=== PATIENT | female | born 1985 | race Caucasian/White ===

== ENCOUNTER 2019-01-07 17:32 | Emergency (ER) | payer MEDICAID ==
[2019-01-07] MEDS: KETOROLAC 15 MG INJ IV (19:11)
[2019-01-07] MEDS: CEFTRIAXONE 1 GM/50 ML (PMX) 50 ML IVPB (19:11)
[2019-01-07] MEDS: DEXAMETHASONE 10 MG/ML 1 ML INJ IV (19:11)
[2019-01-07] MEDS: SOD CHLORIDE 0.9% 1,000 ML IV (19:11)
[2019-01-07 19:13] LABS: ABNORMAL IP MESSAGE 1; HEMOGLOBIN 13.5 g/dl (12.0-16.0); MEAN CORPUSCULAR HEMOGLOBIN 29.9 pg (29.0-33.0); MEAN CORPUSCULAR HGB CONC 32.9 g/dl (32.0-37.0); MEAN CORPUSCULAR VOLUME 90.7 fl (82.0-101.0); MEAN PLATELET VOLUME 10.2 fl (7.4-10.4); PLATELET COUNT 280 10^3/UL (140-415); RED BLOOD COUNT 4.52 10^6/ul (4.20-5.40); RED CELL DISTRIBUTION WIDTH 12.4 % (11.5-14.5)
[2019-01-07 19:13] LABS: WHITE BLOOD COUNT 29.3 10^3/ul (4.8-10.8)
[2019-01-07 19:15] LABS: POSITIVE DIFF @See below
[2019-01-07 19:16] LABS: ADD MAN DIFF? YES
[2019-01-07 19:32] LABS: ANION GAP 16 (5-13); BLOOD UREA NITROGEN 10 mg/dl (7-20); CALCIUM 9.7 mg/dl (8.4-10.2); CARBON DIOXIDE 20 mmol/L (21-31); CHLORIDE 104 mmol/L (97-110); CREATININE 0.69 mg/dl (0.44-1.00); Estimated GFR > 60 mL/min (>60); GLUCOSE 103 mg/dl (70-220); POTASSIUM 4.3 mmol/L (3.5-5.1); SODIUM 140 mmol/L (135-144)
[2019-01-07 20:05] LABS: ANISOCYTOSIS 1+ (0-0); BAND NEUTROPHILS #M 0.5 10^3/ul (0.0-0.6); BAND NEUTROPHILS % (M) 2 % (0-4); LYMPHOCYTES #M 1.7 10^3/ul (0.8-2.9); LYMPHOCYTES % (M) 6 % (15-51); MONOCYTE #M 1.1 10^3/ul (0.3-0.9); MONOCYTES % (M) 4 % (0-11); PLATELET ESTIMATE NORMAL; POLYCHROMASIA 1+ (0-0); SEG NEUT #M 25.9 10^3/ul (1.6-7.5); SEGMENTED NEUTROPHILS (M) % 88 % (39-77); SMUDGE%M 1 % (0-0)
[2019-01-07] MEDS: SOD CHLORIDE 0.9% 100 ML (21:58)
[2019-01-07] MEDS: IOHEXOL 300MG/ML 150 ML BTL (21:58)
== END 2019-01-07 23:55 | disposition home or self-care (01) ==
LOC: FTE 17:32
DX: J02.9 Acute pharyngitis, unspecified (principal)
CPT/HCPCS: 36415; 70491; 80048; 81025; 85025; 96365; 96375; 99285-25

== ENCOUNTER 2019-01-12 09:20 | Emergency (ER) | payer MEDICAID ==
[2019-01-12] MEDS ORDERED: PANTOPRAZOLE IV 80 MG in SOD CHLORIDE 0.9% 100 ML IVPB (10:30)
[2019-01-12] MEDS ORDERED: PANTOPRAZOLE IV 80 MG in SOD CHLORIDE 0.9% 100 ML IV (10:30)
[2019-01-12 11:11] LABS: ADD MAN DIFF? NO
[2019-01-12 11:26] LABS: ABNORMAL IP MESSAGE 1; BASOPHIL # 0.1 10^3/ul (0.0-0.1); BASOPHILS % 0.4 % (0.0-2.0); EOSINOPHILS # 0.1 10^3/ul (0.0-0.5); EOSINOPHILS % 0.7 % (0.0-7.0); HEMATOCRIT 36.1 % (37.0-47.0); HEMOGLOBIN 11.9 g/dl (12.0-16.0); LYMPHOCYTES # 9.3 10^3/ul (0.8-2.9); LYMPHOCYTES % 45.3 % (15.0-51.0); MEAN CORPUSCULAR HEMOGLOBIN 29.5 pg (29.0-33.0); MEAN CORPUSCULAR VOLUME 89.6 fl (82.0-101.0); MONOCYTE # 1.4 10^3/ul (0.3-0.9); MONOCYTES % 6.9 % (0.0-11.0); NEUTROPHIL # 8.9 10^3/ul (1.6-7.5); NEUTROPHILS % 43.4 % (39.0-77.0); PLATELET COUNT 318 10^3/UL (140-415); RED BLOOD COUNT 4.03 10^6/ul (4.20-5.40)
[2019-01-12 11:26] LABS: WHITE BLOOD COUNT 20.4 10^3/ul (4.8-10.8)
[2019-01-12 11:28] LABS: POSITIVE DIFF @See below
[2019-01-12 11:43] LABS: ALANINE AMINOTRANSFERASE 14 IU/L (13-69); ALBUMIN 3.9 g/dl (3.3-4.9); ALBUMIN/GLOBULIN RATIO 1.08; ALKALINE PHOSPHATASE 81 IU/L (42-121); AMYLASE 100 U/L (11-123); ANION GAP 8 (5-13); ASPARTATE AMINO TRANSFERASE 15 IU/L (15-46); BILIRUBIN,INDIRECT 0.3 mg/dl (0-1.1); BILIRUBIN,TOTAL 0.3 mg/dl (0.2-1.3); BLOOD UREA NITROGEN 13 mg/dl (7-20); CARBON DIOXIDE 26 mmol/L (21-31); CHLORIDE 107 mmol/L (97-110); CREATININE 0.56 mg/dl (0.44-1.00); Estimated GFR > 60 mL/min (>60); GLUCOSE 96 mg/dl (70-220); LIPASE 57 U/L (23-300); POTASSIUM 3.5 mmol/L (3.5-5.1); SODIUM 141 mmol/L (135-144); TOTAL PROTEIN 7.5 g/dl (6.1-8.1)
[2019-01-12 11:45] LABS: ETHANOL < 10.0 mg/dl (0-0)
[2019-01-12 11:53] LABS: INR 1.01; PARTIAL THROMBOPLASTIN TIME 26.7 Sec (23.0-35.0); PROTIME 13.4 Sec (11.9-14.9)
[2019-01-12 11:54] LABS: TROPONIN-I < 0.012 ng/ml (0.000-0.120)
[2019-01-12] MEDS: SOD CHLORIDE 0.9% 1,000 ML IV (11:54)
[2019-01-12] MEDS: DEXAMETHASONE 10 MG/ML 1 ML INJ IV (11:54)
[2019-01-12] MEDS: ONDANSETRON 4 MG INJ IV (11:54)
[2019-01-12] MEDS: FAMOTIDINE 20 MG INJ IV (11:54)
== END 2019-01-12 13:31 | disposition home or self-care (01) ==
LOC: E/R 09:20
DX: J36 Peritonsillar abscess (principal)
CPT/HCPCS: 71045; 80053; 80307; 82150; 83690; 84484; 85025; 85610; 85730; 86850; 86900; 86901; 93005; 96374; 96375; 99285-25